=== PATIENT | female | born 1965 | race African-American/Black ===

== ENCOUNTER 2019-02-19 10:01 | Emergency (ER) | payer MEDICAID, MEDICARE, OTHER ==
[~2019-02-19] VITALS: Ht 170.2 cm; Wt 81.6 kg
[2019-02-19 10:06] VITALS: BP 117/79
[2019-02-19] MEDS ORDERED: LISINOPRIL10 MG ORAL (10:11)
[2019-02-19] MEDS ORDERED: AMLODIPINE BES2.5 MG ORAL (10:11)
[2019-02-19] MEDS ORDERED: GLIMEPIRIDE4 MG ORAL (10:11)
[2019-02-19] MEDS ORDERED: METFORMIN HCL1000 M1 ORAL (10:11)
[2019-02-19] MEDS ORDERED: ACTOS45 MG ORAL ×2 (10:11→10:40)
[2019-02-19] MEDS ORDERED: VICTOZA 3-0.6 MG/0.1 SQ (10:13)
[2019-02-19] MEDS ORDERED: TIMOPTIC 0.5%1 DROP RIGHT EYE (10:13)
--- NOTE | 2019-02-19 10:25 | NUR ---
ED Nurse Note: first contact with pt. Pt statest that she is here for medication refill; pending appt with new PCP in May, 2019
[2019-02-19] MEDS ORDERED: LISINOPRIL20 MG ORAL (10:40)
[2019-02-19] MEDS ORDERED: NORVASC2.5 MG ORAL (10:40)
[2019-02-19 10:53] VITALS: BP 117/79
--- NOTE | 2019-02-19 10:54 | NUR ---
ED Nurse Note: Pt cleared by health care Provider for discharge. DC instructions/prescription was given and explained to pt and verbalized understanding of teachings. All medical deviecs such as ID band removed. Pt is AAO x4, ambulatory and left with all personal belongings.
--- NOTE | 2019-02-19 14:16 | Emergency Room Report ---
History of Present Illness General Chief Complaint: Medication Refill Source: Patient Present Illness HPI Patient presents with history of hypertension and diabetes reports that her insurance has recently changed and was requested to present to the ER Patient reports that she takes hypertensive and diabetic medications At this time denies any headache denies any chest pain Denies any abdominal pain Allergies: Coded Allergies: No Known Allergies (Unverified , 02/19/19) Patient History Past Medical History: see triage record Last Menstrual Period: menopause Reviewed Nursing Documentation: PMH: Agreed; PSxH: Agreed Nursing Documentation-PMH Past Medical History: No History, Except For Hx Cardiac Problems: No Hx Hypertension: Yes Hx Pacemaker: No Hx Asthma: No Hx COPD: No Hx Diabetes: Yes Hx Cancer: No Hx Gastrointestinal Problems: No Hx Dialysis: No History Of Psychiatric Problem: No Hx Neurological Problems: No Hx Cerebrovascular Accident: No Hx Seizures: No Review of Systems All Other Systems: negative except mentioned in HPI Physical Exam Vital Signs Date Time Temp Pulse Resp B/P (MAP) Pulse Ox O2 Delivery O2 Flow Rate FiO2 02/19/19 10:06 98.2 86 16 117/79 (92) 98 Room Air Sp02 EP Interpretation: reviewed, normal General Appearance: well appearing, no apparent distress Head: normocephalic, atraumatic Eyes: bilateral eye PERRL, bilateral eye EOMI ENT: hearing grossly normal, normal pharynx, TMs + canals normal, uvula midline Neck: full range of motion, supple, no meningismus, no bony tend Respiratory: lungs clear, normal breath sounds, no rhonchi, no respiratory distress, no retraction, no accessory muscle use Cardiovascular #1: normal peripheral pulses, regular rate, rhythm, no edema, no gallop, no JVD, no murmur Gastrointestinal: normal bowel sounds, non tender, soft, no mass, no organomegaly, non-distended, no guarding, no hernia, no pulsatile mass, no rebound Genitourinary: no CVA tenderness Musculoskeletal: normal inspection Neurologic: motor strength/tone normal, sales and service advisor III-XII nml as tested, oriented x3 , sensory intact, responsive Psychiatric: mood/affect normal Skin: no rash Lymphatic: normal inspection, no adenopathy Medical Decision Making Diagnostic Impression: Primary Impression: hypertension Additional Impression: diabetes ER Course Multiple differentials and consideration Patient at this time has appropriate vital signs on examination baseline neurological exam Patient did have prescription provided for further outpatient follow-up and will return with any concerns Last Vital Signs Date Time Temp Pulse Resp B/P (MAP) Pulse Ox O2 Delivery O2 Flow Rate FiO2 02/19/19 10:53 98.2 78 16 117/79 98 Room Air Status: unchanged Disposition: HOME, SELF-CARE Condition: Stable Scripts Pioglitazone Hcl* (ACTOS*) 45 Mg Tablet 45 MG ORAL DAILY, #30 TAB Prov: Susana Blanco DO 02/19/19 Amlodipine Besylate (Norvasc) 2.5 Mg Tablet 2.5 MG ORAL DAILY, #30 TAB Prov: Susana Blanco DO 02/19/19 Lisinopril (LISINOPRIL*) 20 Mg Tablet 20 MG ORAL DAILY, #30 TAB Prov: Susana Blanco DO 02/19/19 Referrals: NOT CHOSEN IPA/,REFERRING [facility] Karol Burgos [facility]. [facility] Patient Instructions: Hypertension, [id number], Managing Your High Blood Pressure, Type 2 Diabetes Mellitus, Adult, [id number] Additional Instructions: Patient is provided with the discharge instructions notified to follow up with primary doctor in the next 2-3 days otherwise return to the er with any worsening symptoms. Please note that this report is being documented using [employer] technology. This can lead to erroneous entry secondary to incorrect interpretation by the dictating instrument. Susana Blanco DO Feb 19, 2019 14:16
== END 2019-02-19 10:54 | disposition home or self-care (01) ==
LOC: EMR 10:47
DX: I10 Essential (primary) hypertension (principal); E11.9 Type 2 diabetes mellitus without complications
CPT/HCPCS: 99282